=== PATIENT | female | born 1990 | race Caucasian/White ===

== ENCOUNTER 2020-08-17 17:22 | Emergency (ER) | payer OTHER, BC ==
--- OUTSIDE RECORDS SUMMARY | 2020-08-17 17:24 | XMS REPORT | Clinical Summary ---
:1990 Author Organization [facility] Address [address] [place] [address] Care Team Providers Name Role Phone Unavailable Primary Care Provider Unavailable Allergies Active Allergy Reactions Severity Noted Date Comments Sulfa (Sulfonamide Antibiotics) 9 Medications Medication Sig Dispensed Refills Start Date End Date Status amLODIPine (NORVASC) Take 2.5 mg by 0 Active 2.5 MG tablet mouth daily. losartan (COZAAR) 25 Take 25 mg by 0 Active MG tablet mouth daily. metoprolol (LOPRESSOR) Take 25 mg by 0 Active 25 MG tablet mouth 2 (two) times daily. clonazePAM (KLONOPIN) Take 0.5 mg by 0 Active 0.5 MG tablet mouth 2 (two) times daily as needed for Anxiety. Active Problems Not on file Social History Tobacco Use Types Packs/Day Years Used Date Current Some Day Smoker Alcohol Use Drinks/Week oz/Week Comments Yes Sex Assigned at Date Recorded Not on file Last Filed Vital Signs Not on file Plan of Treatment Not on file Results Not on fileafter 08/17/2019
--- OUTSIDE RECORDS SUMMARY | 2020-08-17 17:25 | XMS REPORT | Continuity of Care Document ---
:1990 Author Organization [facility] Care Team Providers Name Role Phone [facility] Unavailable Un available Problems Problem Status Onset Classification Date Comments Sourc e Date Reported OBESITY Active 01/03/20 Condition 01/02/2015 Medica l 15 Group HYPERTENSION, Active 11/28/19 Condition 01/02/2015 Me dical UNCONTROLLED 15 Group BACK PAIN, Active 11/22/19 Condition 01/02/2015 Medic al THORACIC REGION 15 Grou p NEED PROPHYLACTIC Active 08/22/20 Condition 01/02/2015 [facility] VACCINATION&INOCU 14 Gr oup LATION FLU DEPRESSION/ANXIET Active 08/22/20 Condition 01/02/2015 [facility] Y 14 Group BACK PAIN, LOWER Active 08/22/20 Condition 01/02/2015 Medical 14 Group MIGRAINE HEADACHE Active 08/22/20 Condition 01/02/2015 [facility] 14 Group ELEVATED BLOOD Inactive 08/22/20 Condition 01/02/2015 [facility] edical PRESSURE WITHOUT 14 Richie up DIAGNOSIS OF HYPERTENSION HTN Active Problem 08/16/2020 2.16.840. 1 (hypertension) .1138 83.4. 391.11.178 02 GERD Active Problem 01/09/2018 2.16.840. 1 (gastroesophageal .1 57338.4. reflux disease) 391. 11.178 02 ADD (attention Active Problem 08/16/2020 2.16 .840.1 deficit disorder) .1 70558.4. 391.11.178 02 Unspecified Active Problem 08/16/2020 2.16.84 0.1 essential .183173.4. hypertension 391.11. 178 02 Attention and Active Problem 08/16/2020 2.16. 840.1 concentration .42240 3.4. deficit 391.11.178 02 GERD Active Problem 08/16/2020 2.16.840. 1 (gastroesophageal .1 42925.4. reflux disease) 391. 11.178 02 Essential Active Problem 05/21/2018 2.16.840. 1 (primary) .640217.4. hypertension 391.11. 178 02 Gastro-esophageal Active Problem 08/16/2020 2 .16.840.1 reflux disease .1138 83.4. without 391.11.178 esophagitis 02 Attention or Active Problem 08/16/2020 2.16.8 40.1 concentration .42484 3.4. deficit 391.11.178 02 JB (generalized Active Problem 08/16/2020 2. 16.840.1 anxiety disorder) .1 82533.4. 391.11.178 02 Bipolar 2 Active Problem 08/16/2020 2.16.840. 1 disorder .089976.4. 391.11.178 02 Adult general Active Diagnosis 05/13/2020 2.16. 840.1 medical .570582.4. examination 391.11.1 78 02 Fatigue Active Diagnosis 08/16/2020 2.16.840. 1 .169138.4. 391.11.178 02 Medications Medication Details Route Status Patient Ordering Order Source Instructions Provider Date Adderall 1 tablet Orally Active 20 MG Orally Sánchez 2.16.840. daily 020 1.797454. 4.391.11. 07019 Vyvanse 1 capsule in Orally Active 70 MG Orally Sánchez 2.16.8 40. the morning Once a day 020 1.581570. 4.391.11. 59173 Vraylar 1 capsule Orally Active 1.5 MG Orally Sánchez 2.16.840 . 020 1.322308. 4.391.11. 56604 Mydayis 1 capsule in Orally Active 50 MG Orally Sánchez 2.16.8 40. the morning Once a day 020 1.168644. 4.391.11. 20042 Vyvanse 1 capsule in Orally Active 70 MG Orally Sánchez 2.16.8 40. the morning Once a day 020 1.181768. 4.391.11. 51926 BuSpar 1 tablet Orally Active 10 MG Orally Sánchez 2.16.840. Twice a day 020 1.629653. 4.391.11. 42180 Vyvanse 1 capsule in Orally Active 70 MG Orally [facility] 2.16.8 40. the morning Once a day 020 1.188018. 4.391.11. 59541 Aripiprazole 1 tablet Orally Active 10 MG Orally Sánchez 2.16. 840. Once a day 020 1.842388. 4.391.11. 68038 Adderall 1 tablet Orally Active 20 MG Orally Sánchez 2.16.840. Twice a day 020 1.071590. 4.391.11. 16986 Adderall 1 tablet Orally Active 20 MG Orally Sánchez 2.16.840. Twice a day 020 1.263606. 4.391.11. 60360 BuSpar 1 tablet Orally Active 10 MG Orally Sánchez 2.16.840. Twice a day 020 1.286176. 4.391.11. 89314 Adderall 1 tablet Orally Active 20 MG Orally [facility] 2.16.840. Twice a day 020 1.849179. 4.391.11. 18198 Lexapro 1 tablet Orally Active 20 MG Orally [facility] 2.16.840. Once a day 020 1.087617. 4.391.11. 13403 HydrOXYzine HCl 1 tablet as Orally Active 25 MG Orally [facility] 2.16.840. needed once every 020 1.642041. night 4.391.11. 30633 Klonopin 1/2 tab Orally Active 2 MG Orally [facility] 2.16.840. twice a day 020 1.213348. (bid) 4.391.11. 20897 Adderall 1 tablet Orally Active 10 MG Orally [facility] 2.16.840. Twice a day 020 1.792639. 4.391.11. 74234 Klonopin 1 tablet Orally Active 1 MG Orally [facility] 2.16.840. Once a day 020 1.132251. 4.391.11. 25186 Lexapro 1 tablet Orally Active 10 MG Orally [facility] 2.16.840. Once a day 020 1.746669. 4.391.11. 63580 IMITREX 50 MG 1 tablet onset Active MH TABS of SANTANA, repeat 015 Medical in 2 hours if Group SANTANA persists; max 200mg in 24 hours LEXAPRO 20 MG 1 tablet daily Active MH TABS 015 Medical Group METOPROLOL one tab po Active MH SUCCINATE ER 25 daily 015 Medical MG [id number] Group METOPROLOL one tab po Active MH SUCCINATE ER 50 daily 015 Medical MG [id number] Group LEXAPRO 10 MG 1 tablet No MH TABS daily; after 2 Longer 015 Medical weeks increase Active Group to 2 tablet po daily; pharmacist-dis regard last prescription for lexapro, this is correct TRAMADOL HCL 50 1 tablet daily Active M H MG TABS as needed for 015 Medical severe back Group pain TRAMADOL HCL 50 1 tablet daily Active M H MG TABS as needed for 015 Medical severe back Group pain EFFEXOR XR 75 one tab po Active MH MG [id number] daily 014 Medical Group TRAMADOL-ACETAM one tab po Active MH INOPHEN every 8-12 014 Medical 37.5-325 MG hours as Group TABS needed for back pain TRAMADOL-ACETAM one tab po No MH INOPHEN every 8-12 Longer 014 Medical 37.5-325 MG hours as Active Group TABS needed for back pain EFFEXOR XR 37.5 Take one No MH MG [id number] capsule by Longer 014 Medical mouth daily Active Group ACTICLATE 150 daily No MH MG TABS Longer 014 Medical Active Group EFFEXOR XR 37.5 Take one No MH MG [id number] capsule by Longer 014 Medical mouth daily Active Group MELOXICAM 7.5 one tab po No MH MG TABS twice daily as Longer 014 Medical needed for Active Group pain IMITREX 50 MG 1 tablet onset No MH TABS of SANTANA, repeat Longer 014 Medical in 2 hours if Active Group SANTANA persists; max 200mg in 24 hours MELOXICAM 7.5 one tab po No MH MG TABS twice daily as Longer 014 Medical needed for Active Group pain Metoprolol TAKE 1 TABLET NA Active 50 MG Sánchez 2.16.84 0. Succinate ER BY MOUTH EVERY 1.11 3883. DAY Omeprazole TAKE ONE NA Active 40 MG Sánchez 2.16.840. CAPSULE EVERY 1.020642. DAY Toprol XL take 1 tablet Orally Active 100 MG Orally Sánchez 2. 16.840. by mouth every 1.713990. day Toprol XL TAKE 1 TABLET NA Active 50 MG Sánchez 2.16.840 . BY MOUTH EVERY 1.340758. DAY Mydayis 1 capsule in Orally Active 37.5 MG Orally Sánchez 2.16 .840. the morning Once a day .933099. Norvasc TAKE 1 TABLET NA Active 5 MG Sánchez 2.16.840. BY MOUTH EVERY 1.793150. DAY Meloxicam TAKE 1 TABLET NA Active 15 MG Sánchez 2.16.840 . BY MOUTH EVERY 1.404110. DAY Losartan TAKE 1 TABLET NA Active 100 MG Sánchez 2.16.840. Potassium BY MOUTH EVERY 1.30327 3. DAY Lexapro 1 tablet Orally Active 20 MG Orally Sánchez 2.16.840. Once a day . Metoprolol TAKE 1 TABLET NA Active 100 MG Sánchez 2.16.84 0. Succinate ER BY MOUTH EVERY 1.11 3883. DAY Toprol XL take 1 tablet Orally Active 100 MG Orally Sánchez 2. 16.840. by mouth every 1.580881. day Allergies, Adverse Reactions, Alerts Substance Category Reaction Severity Reaction Status Date Comments S ource type Reported SULFA Drug SULFA MH allergy 4 Medical Group sulfa Adverse Info Not Adverse Active 2.16. 840 Reaction Available Reaction 0 .1.1 1388 3.4.391. 11.86493 Immunizations No Data Provided for This Section Results Order Name Results Value Reference Date Interpretation Comments Carleen rce Range Chemistry TSH 1.270 0.360 - 3.740 014 Medical Group Pathology Reports No Data Provided for This Section Diagnostic Reports No Data Provided for This Section Consultation Notes No Data Provided for This Section Discharge Summaries No Data Provided for This Section History and Physicals No Data Provided for This Section Vital Signs Vital Sign Value Date Comments Source Weight 201 05/12/2020 2.16.840.1.1138 83 .4.391.11.49351 Height 64 05/12/2020 2.16.840.1.1138 83 .4.391.11.24285 Diastolic (mm Hg) 92 05/12/2020 2.16.840.1 .132748 .4.391.11.09809 Systolic (mm Hg) 140 05/12/2020 2.16.840.1. 515462 .4.391.11.85230 Weight 204 02/01/2020 2.16.840.1.1138 83 .4.391.11.95021 Height 64 02/01/2020 2.16.840.1.1138 83 .4.391.11.36721 Diastolic (mm Hg) 90 02/01/2020 2.16.840.1 .338893 .4.391.11.24440 Systolic (mm Hg) 140 02/01/2020 2.16.840.1. 425347 .4.391.11.93409 Weight 214 01/11/2020 2.16.840.1.1138 83 .4.391.11.96006 Height 64 01/11/2020 2.16.840.1.1138 83 .4.391.11.65214 Diastolic (mm Hg) 110 01/11/2020 2.16.840.1 .125879 .4.391.11.39706 Systolic (mm Hg) 160 01/11/2020 2.16.840.1. 593381 .4.391.11.80969 Weight 208 01/02/2015 Medical Grou p Systolic (mm Hg) 139 01/02/2015 Medical Group Diastolic (mm Hg) 94 01/02/2015 Medical Group Temperature Oral (F) 98.5 F 01/02/2015 Medi beto Group Respitory Rate 20 01/02/2015 Medical Gr oup Heart Rate 80 01/02/2015 Medical Grou p Height 65 11/28/2014 Medical Grou p Weight 202 11/28/2014 Medical Grou p Respitory Rate 17 11/28/2014 Medical Gr oup Systolic (mm Hg) 148 11/28/2014 Medical Group Diastolic (mm Hg) 102 11/28/2014 Medical Group Heart Rate 97 11/28/2014 Medical Grou p Temperature Oral (F) 98.3 F 11/28/2014 Medi beto Group Height 65 11/22/2014 Medical Grou p Weight 204 11/22/2014 Medical Grou p Respitory Rate 17 11/22/2014 Medical Gr oup Temperature Oral (F) 98.1 F 11/22/2014 Medi beto Group Heart Rate 88 11/22/2014 Medical Grou p Systolic (mm Hg) 142 11/22/2014 Medical Group Diastolic (mm Hg) 102 11/22/2014 Medical Group Height 65 09/26/2014 Medical Grou p Weight 199 09/26/2014 Medical Grou p Respitory Rate 17 09/26/2014 Medical Gr oup Temperature Oral (F) 98.7 F 09/26/2014 Medi beto Group Heart Rate 92 09/26/2014 Medical Grou p Systolic (mm Hg) 114 09/26/2014 Medical Group Diastolic (mm Hg) 80 09/26/2014 Medical Group Respitory Rate 17 08/22/2014 Medical Gr oup Weight 199 08/22/2014 Medical Grou p Height 65 08/22/2014 Medical Grou p Systolic (mm Hg) 140 08/22/2014 Medical Group Diastolic (mm Hg) 80 08/22/2014 Medical Group Temperature Oral (F) 98.0 F 08/22/2014 Medi beto Group Encounters Location Location Encounter Encounter Reason Attending ADM DC Stat us Source Details Type Number For Provider Date Date Visit [facility] Report [id number] Twyla 08/22 08/22 BOB Corral 0 MD Marc /2013 [facility] Office [id number] Twyla 08/22 08/22 Gilbert Visit 0 MD [facility] [id number] Twyla 09/26 09/26 MH Ellis Visit 0 MD [facility] Office [id number] Twyla 11/22 11/22 Gilbert Visit 0 MD [facility] [id number] Twyla 11/28 11/28 Ellis Visit 0 MD [facility] [id number] Twyla 01/02 01/02 Gilbert Visit 0 MD [facility] [place] Procedures No Data Provided for This Section Assessment and Plan No Data Provided for This Section Plan of Care No Data Provided for This Section Social History No Data Provided for This Section Family History No Data Provided for This Section Advance Directives No Data Provided for This Section Functional Status No Data Provided for This Section
--- OUTSIDE RECORDS SUMMARY | 2020-08-17 17:25 | XMS REPORT ---
:1990 Author Organization [employer] Care Team Providers Name Role Phone Garth Sánchez Provider Role Unavailable Allergies No Known Allergies Problems Problem Type Condition Code Onset Dates Condition Statu s Problem GERD (gastroesophageal reflux 530.81 Active disease) Problem Attention and concentration deficit 799.51 Active Problem HTN (hypertension) I10 Active Problem JB (generalized anxiety disorder) F41.1 Active Problem Bipolar 2 disorder F31.81 Active Problem ADD (attention deficit disorder) F90.0 Active Problem Unspecified essential hypertension 401.9 Active Problem Attention or concentration deficit R41.840 Active Problem Gastro-esophageal reflux disease K21.9 Active without esophagitis Medications Medication Code System Code Instructions Start End Date Status Dos age Date Adderall [facility] 15430697065 20 MG Orally Oct 20, Active 1 tabl et daily 2019 Vyvanse [facility] 16226784335 70 MG Orally Oct 20, Active 1 capsu le Once a day 2019 in the morning Results No Known Results Summary Purpose [employer] Submission
--- OUTSIDE RECORDS SUMMARY | 2020-08-17 17:25 | XMS REPORT ---
[...] Start End Date Status Dos age Date Klonopin [facility] 53279479032 2 MG Orally January 10, Active 1/2 t ab twice a day 2019 (bid) Vyvanse [facility] 23606701801 70 MG Orally Jul 11, Active 1 caps ule Once a day 2019 in the morning BuSpar NDC 0 10 MG Orally Jul 11, Active 1 tablet Twice a day 2019 Results No Known Results Summary Purpose [employer] Submission
--- OUTSIDE RECORDS SUMMARY | 2020-08-17 17:25 | XMS REPORT ---
:1990 Author Organization [employer] Care Team Providers Name Role Phone Garth Sánchez Provider Role Unavailable Allergies, Adverse Reactions, Alerts Substance Reaction Event Type sulfa Info Not Available Drug Allergy Problems Problem Type Condition Code Onset Dates Condition Statu s Problem GERD (gastroesophageal reflux 530.81 Active disease) Problem Attention and concentration deficit 799.51 Active Assessment Bipolar 2 disorder F31.81 Active Assessment ADD (attention deficit disorder) F90.0 Active Assessment Fatigue R53.83 Active Problem HTN (hypertension) I10 Active Problem JB (generalized anxiety disorder) F41.1 Active Problem Bipolar 2 disorder F31.81 Active Problem ADD (attention deficit disorder) F90.0 Active Problem Unspecified essential hypertension 401.9 Active Problem Attention or concentration deficit R41.840 Active Problem Gastro-esophageal reflux disease K21.9 Active without esophagitis Medications Medication Code Code Instructions Start End Status Dosage System Date Date Adderall [facility] 17637915897 20 MG Orally April 25, Active 1 tab let Twice a day 2019 Toprol XL [facility] [address]-53 100 MG Orally Active ta ke 1 tablet by mouth every day Vyvanse [facility] 15498323796 70 MG Orally Jul 11, Active 1 caps ule Once a day 2019 in the morning Klonopin ND 45682794920 2 MG Orally December Active 1/2 tab twice a day 2019 (bid) HydrOXYzine HCl [facility] 20277871597 25 MG Orally December Active 1 tablet once every 2019 as needed night Omeprazole [facility] 86338286374 40 MG Active TAKE ONE CAPSULE EVERY DAY BuSpar NDC 0 10 MG Orally Jul 11, Active 1 tablet Twice a day 2019 Lexapro [facility] 25542275585 20 MG Orally Active 1 table t Once a day Aripiprazole ND 63121968298 10 MG Orally May 12, Inactive 1 tablet Once a day 2019 Vraylar [facility] 52443491186 1.5 MG Orally Oct , Active 1 caps ule 2019 Mydayis [facility] 68522821878 50 MG Orally Oct 20, Active 1 capsu le Once a day 2019 in the morning Results No Known Results Summary Purpose [employer] Submission
--- OUTSIDE RECORDS SUMMARY | 2020-08-17 17:25 | XMS REPORT ---
[...] reflux disease K21.9 Active without esophagitis Medications No Known Medications Results No Known Results Summary Purpose [employer] Submission
--- OUTSIDE RECORDS SUMMARY | 2020-08-17 17:25 | XMS REPORT ---
:1990 Author Organization [employer] Care Team Providers Name Role Phone Garth Sánchez Provider Role Unavailable Allergies No Known Allergies Problems Problem Type Condition Code Onset Dates Condition Statu s Problem GERD (gastroesophageal reflux 530.81 Active disease) Problem Attention and concentration deficit 799.51 Active Assessment JB (generalized anxiety disorder) F41.1 Active Problem HTN (hypertension) I10 Active Problem JB (generalized anxiety disorder) F41.1 Active Problem Bipolar 2 disorder F31.81 Active Problem ADD (attention deficit disorder) F90.0 Active Problem Unspecified essential hypertension 401.9 Active Problem Attention or concentration deficit R41.840 Active Problem Gastro-esophageal reflux disease K21.9 Active without esophagitis Medications Medication Code System Code Instructions Start End Date Status Dos age Date Klonopin [facility] 37124926757 2 MG Orally January 10, Active 1/2 t ab twice a day 2019 (bid) Vyvanse [facility] 56307373180 70 MG Orally Jun 08, Active 1 capsu le Once a day 2019 in the morning Results No Known Results Summary Purpose [employer] Submission
--- OUTSIDE RECORDS SUMMARY | 2020-08-17 17:26 | XMS REPORT | Continuity of Care Document ---
:1990 Author Organization [facility] t Address [address] [place] [address] Care Team Providers Name Role Phone Viktoria JOEL Attending Clinician Unavailable MAAME ENGLISH Attending Clinician Unavailable Problems Condition Condition Condition Status Onset Resolution Last Treating Co mments Source Name Details Category Date Date Treatment Clinician Date OBESITY Condition Active 2015-01-02 Me moria 01-02 11:34:04 l OBESITY 00:00: [place] 00 Active 01/02/2015 Condition [facility] HYPERTENSI Condition Active 2015-01-02 Memoria ON, 11-28 11:34:04 l UNCONTROLL 00:00: Shawn n ED HYPERTENSI 00 ON, UNCONTROLL ED Active 5 Condition 01/02/2015 [facility] Group BACK PAIN, Condition Active 2015-01-02 Memoria THORACIC 1 11:34:04 l REGION BACK 00:00: [place] PAIN, 00 THORACIC REGION Active 11/22/2014 Condition [facility] NEED Condition Active 2013-102015-01-02 Mem oria PROPHYLACT 0- 11:34:04 l IC NEED 00:00: [place] VACCINATIO PROPHYLACT 00 N&INOCULAT IC ION FLU VACCINATIO N&INOCULAT ION FLU Active 08/22/2014 Condition [facility] DEPRESSION Condition Active 2013-102015-01-02 Memoria /ANXIETY 0- 11:34:04 l 00:00: [place] DEPRESSION 00 /ANXIETY Active 08/22/2014 Condition [facility] BACK PAIN, Condition Active 2013-102015-01-02 Memoria LOWER 0-27 11:34:04 l BACK 00:00: [place] PAIN, 00 LOWER Active 08/22/2014 Condition [facility] MIGRAINE Condition Active 2013-102015-01-02 M bisirijustin HEADACHE 0-27 11:34:04 l MIGRAINE 00:00: Shawn n HEADACHE 00 Active 08/22/2014 Condition [facility] HTN Problem Active 2020-08-16 Memor ia (hypertens 02:45:57 l ion) HTN [place] (hypertens ion) Active Problem 08/16/2020 2.16.840.1 .413017.4. [id number] 02 ADD Problem Active 2020-08-16 Memor ia (attention 02:45:57 l deficit ADD [place] disorder) (attention deficit disorder) Active Problem 08/16/2020 2.16.840.1 .428322.4. [id number] 02 Unspecifie Problem Active 2020-08-16 M emoria d 02:45:57 l essential [place] hypertensi Unspecifie on d essential hypertensi on Active Problem 0 2.16.840.1 .169019.4. [id number] 02 Attention Problem Active 2020-08-16 Me moria and 02:45:57 l concentrat Shawn n ion Attention deficit and concentrat ion deficit Active Problem 08/16/2020 2.16.840.1 .691821.4. [id number] 02 GERD Problem Active 2020-08-16 Memor ia (gastroeso 02:45:57 l phageal GERD [place] reflux (gastroeso disease) phageal reflux disease) Active Problem 08/16/2020 2.16.840.1 .930266.4. [id number] 02 Gastro-eso Problem Active 2020-08-16 M emoria phageal 02:45:57 l reflux [place] disease Gastro-eso without phageal esophagiti reflux s disease without esophagiti s Active Problem 08/16/2020 2.16.840.1 .213539.4. [id number] 02 Attention Problem Active 2020-08-16 Me moria or 02:45:57 l concentrat Shawn n ion Attention deficit or concentrat ion deficit Active Problem 08/16/2020 2.16.840.1 .907794.4. [id number] 02 JB Problem Active 2020-08-16 Memor ia (generaliz 02:45:57 l ed anxiety JB Shawn n disorder) (generaliz ed anxiety disorder) Active Problem 08/16/2020 2.16.840.1 .054104.4. [id number] 02 Bipolar 2 Problem Active 2020-08-16 Me moria disorder 02:45:57 l Bipolar [place] 2 disorder Active Problem 08/16/2020 2.16.840.1 .181335.4. 391.11.178 02 Adult Diagnosis Active 2020-05-13 Mem oria general 02:46:13 l medical Adult [place] examinatio general n medical examinatio n Active Diagnosis 05/13/2020 2.16.840.1 .652294.4. [id number] 02 Fatigue Diagnosis Active 2020-08-16 Me moria 02:45:06 l Fatigue [place] Active Diagnosis 08/16/2020 2.16.840.1 .054854.4. [id number] 02 History of Past Illness Condition Condition Condition Status Onset Resolution Last Treating Co mments Source Name Details Category Date Date Treatment Clinician Date ELEVATED Condition Inactiv 2013-102015-01-02 2015-01-02 Memoria BLOOD e 0-27 11:34:04 11:34:04 l PRESSURE ELEVATED 00:00: Herm kathy WITHOUT BLOOD 00 DIAGNOSIS PRESSURE OF WITHOUT HYPERTENSI DIAGNOSIS ON OF HYPERTENSI ON Inactive 08/22/2014 Condition [facility] Allergies, Adverse Reactions, Alerts Allergy Allergy Status Severity Reaction(s) Onset Inactive Treating Comm ents Source Name Type Date Date Clinician sulfa sulfa Active Info Not 2019-10 Memoria Available 0-19 l 00:00: [place] 00 Sulfa Propensi Active [facility] ([facility] m[facility] adverse 00:00: Medical Antibiot reaction 00 Center ics) s SULFA SULFA Active 2013-10 Memoria 0-27 l 00:00: [place] 00 Social History Social Habit Start Date Stop Date Quantity Comments Source Sex Assigned At [facility] Alcohol intake 2019-03-04 2019-03-04 Current drinker LAYLA Poon - 00:00:00 00:00:00 of [facility] (finding) Smoking Status Start Date Stop Date Source Current some day smoker 2019-03-04 00:00:00 [facility] Medications Ordered Filled Start Stop Current Ordering Indication Dosage Frequency Signature Comments Components Source Medication Medication Date Date Medication? Clinician (SIG) Name Name Omeprazole 2020- Yes Garth TAKE ONE Me moria 0-21 Sánchez CAPSULE l 02:45: EVERY DAY [place] Lexapro 2020- Yes Gatrh 1 tablet Memor ia 0-21 Sánchez l 02:45: [place] 06 Toprol XL 2019- Yes Garth take 1 Memor ia 0-21 Sánchez tablet by l 02:45: mouth [place] 06 every day Adderall 2019- Yes Garth 1 tablet Andres melania 0-20 Sánchez l 00:00: [place] 00 Vyvanse 2020-1 Yes Garth 1 capsule Andres melania 0-20 Sánchez in the l 00:00: morning [place] 00 Vraylar 2020-1 Yes Garth 1 capsule Andres melania 0-20 Sánchez l 00:00: [place] 00 Mydayis 2020-1 Yes Garth 1 capsule Andres melania 0-20 Sánchez in the l 00:00: morning [place] 00 Vyvanse 2020-0 Yes Garth 1 capsule Andres melania 9-15 Sánchez in the l 00:00: morning [place] 00 BuSpar 2020-0 Yes Garth 1 tablet Memori a 9-15 Sánchez l 00:00: [place] 00 Vyvanse 2020-0 Yes Garth 1 capsule Andres melania 8-13 Sánchez in the l 00:00: morning [place] 00 Metoprolol 2020-0 Yes Garth TAKE 1 Andres melania Succinate 7-18 Sánchez TABLET BY l ER 02:46: MOUTH [place] 13 EVERY DAY Toprol XL 2020-0 Yes Garth take 1 Memor ia 7-18 Sánchez tablet by l 02:46: mouth [place] 13 every day Metoprolol 2020-0 Yes Garth TAKE 1 Andres melania Succinate 7-18 Sánchez TABLET BY l ER 02:46: MOUTH [place] 13 EVERY DAY Aripiprazol 2020-0 Yes Garth 1 tablet M emoria e 7-17 Sánchez l 00:00: Adderall 2020-0 Yes Garth 1 tablet Andres melania 6-30 Sánchez l 00:00: Adderall 2020-0 Yes Garth 1 tablet Andres melania 5-19 Sánchez l 00:00: BuSpar 2020-0 Yes Garth 1 tablet Memori a 4-08 Sánchez l 00:00: Adderall 2020-0 Yes Garth 1 tablet Andres melania 4-08 Sánchez l 00:00: Toprol XL 2020-0 Yes Garth TAKE 1 Memor ia 3-18 Sánchez TABLET BY l 02:46: MOUTH [place] 15 EVERY DAY Mydayis 2020-0 Yes Garth 1 capsule Andres melania 3-18 Sánchez in the l 02:46: morning [place] 15 Norvasc 2020-0 Yes Garth TAKE 1 Memoria 3-18 Sánchez TABLET BY l 02:46: MOUTH [place] 15 EVERY DAY Meloxicam 2020-0 Yes Garth TAKE 1 Memor ia 3-18 Sánchez TABLET BY l 02:46: MOUTH [place] 15 EVERY DAY Losartan 2020-0 Yes Garth TAKE 1 Memori a Potassium 3-18 Sánchez TABLET BY l 02:46: MOUTH [place] 15 EVERY DAY Lexapro 2020-0 Yes Garth 1 tablet Memor ia 3-17 Sánchez l 00:00: HydrOXYzine 2020-0 Yes Garth 1 tablet M emoria HCl 3-17 Sánchez as needed l 00:00: Klonopin 2020-0 Yes Garth 1/2 tab Memor ia 3-17 Sánchez l 00:00: Adderall 2020-0 Yes Garth 1 tablet Andres melania 3-17 Sánchez l 00:00: Klonopin 2020-0 Yes Garth 1 tablet Andres melania 3-17 Sánchez l 00:00: Lexapro 2020-0 Yes Garth 1 tablet Memor ia 3-17 Sánchez l 00:00: amLODIPine 2019-0 Yes 2.5mg QD Take 2.[address] [facility] [address] [facility] (NORVASC) 5-08 mg by [facility] - 2.5 MG 21:48: mouth Medical tablet 18 daily. Center losartan Yes 25mg QD Take [address] [facility] (COZAAR) 25 5-08 by mouth Luke s - MG tablet 21:48: daily. Medica l 18 Center metoprolol Yes 25mg Q.5D Take [address] [facility] [address] [facility] (LOPRESSOR) 5-08 by mouth 2 Julia kes - 25 MG 21:48: (two) Medical tablet 18 times Center daily. clonazePAM Yes .5mg Take 0.[address] [facility] (KLONOPIN) 5-08 mg by [facility] - 0.5 MG 21:48: mouth 2 Medical tablet 18 (two) Center times daily as needed for Anxiety. IMITREX 50 Yes 1 tablet Mem oria MG TABS 3-09 onset of l 00:00: SANTANA, repeat in 2 hours if SANTANA persists; max 200mg in 24 hours LEXAPRO 20 Yes 1 tablet Mem oria MG TABS 3-09 daily l 00:00: [place] METOPROLOL Yes one tab po M emoria SUCCINATE 2-02 daily l ER 25 MG 00:00: [place] [id number] METOPROLOL Yes one tab po M emoria SUCCINATE 2-02 daily l ER 50 MG 00:00: [place] [id number] LEXAPRO 10 No 1 tablet Mem oria MG TABS 1-27 daily; l 00:00: after 2 [place] 00 weeks increase to 2 tablet po daily; pharmacist -disregard last prescripti on for lexapro, this is correct TRAMADOL Yes 1 tablet Memor ia HCL 50 MG 1-27 daily as l TABS 00:00: needed for severe back pain TRAMADOL Yes 1 tablet Memor ia HCL 50 MG 1-27 daily as l TABS 00:00: needed for severe back pain EFFEXOR XR 2013-10 Yes one tab po M emoria 75 MG 2-01 daily l [id number] 00:00: [place] 00 TRAMADOL-AC 2013-10 Yes one tab po Memoria ETAMINOPHEN 2-01 every 8-12 l 37.5-325 MG 00:00: hours as He rmann TABS 00 needed for back pain TRAMADOL-AC 2013-10 No one tab po Memoria ETAMINOPHEN 2-01 every 8-12 l 37.5-325 MG 00:00: hours as He rmann TABS 00 needed for back pain EFFEXOR XR 2013-10 No Take one Mem oria 37.5 MG 2-01 capsule by l [id number] 00:00: mouth [place] 00 daily ACTICLATE 2013-10 No daily Memoria 150 MG TABS 0-27 l 00:00: [place] 00 EFFEXOR XR 2013-10 No Take one Mem oria 37.5 MG 0-27 capsule by l [id number] 00:00: mouth [place] 00 daily MELOXICAM 2013-10 No one tab po Me moria 7.5 MG TABS 0-27 twice l 00:00: daily as [place] 00 needed for pain IMITREX 50 2013-10 No 1 tablet Mem oria MG TABS 0-27 onset of l 00:00: SANTANA, repeat [place] 00 in 2 hours if SANTANA persists; max 200mg in 24 hours MELOXICAM 2013-10 No one tab po Me moria 7.5 MG TABS 0-27 twice l 00:00: daily as [place] 00 needed for pain Vital Signs Vital Name Observation Time Observation Value Comments Source Weight 2020-05-12 16:00:00 [facility] [place] Height 2020-05-12 16:00:00 [facility] [place] Diastolic (mm Hg) 2020-05-12 16:00:00 Mem orial [place] Systolic (mm Hg) 2020-05-12 16:00:00 Andres Corral Weight 2020-02-01 19:00:00 [facility] [place] Height 2020-02-01 19:00:00 [facility] [place] Diastolic (mm Hg) 2020-02-01 19:00:00 Mem orial [place] Systolic (mm Hg) 2020-02-01 19:00:00 Andres Ricardoann Weight 2020-01-11 19:00:00 [facility] [place] Height 2020-01-11 19:00:00 [facility] [place] Diastolic (mm Hg) 2020-01-11 19:00:00 Mem orial [place] Systolic (mm Hg) 2020-01-11 19:00:00 Andres Corral Weight 2015-01-02 16:34:04 [facility] [place] Systolic (mm Hg) 2015-01-02 16:34:04 Andres rial [place] Diastolic (mm Hg) 2015-01-02 16:34:04 Mem orial [place] Temperature Oral (F) 2015-01-02 16:34:04 98.5 F [facility] [place] Respitory Rate 2015-01-02 16:34:04 Memori al [place] Heart Rate 2015-01-02 16:34:04 [facility] [place] Height 2014-11-28 17:16:13 [facility] [place] Weight 2014-11-28 17:16:13 [facility] [place] Respitory Rate 2014-11-28 17:16:13 Memori al [place] Systolic (mm Hg) 2014-11-28 17:16:13 Andres rial [place] Diastolic (mm Hg) 2014-11-28 17:16:13 Mem orial [place] Heart Rate 2014-11-28 17:16:13 [facility] [place] Temperature Oral (F) 2014-11-28 17:16:13 98.3 F [facility] [place] Height 2014-11-22 14:28:22 [facility] [place] Weight 2014-11-22 14:28:22 [facility] [place] Respitory Rate 2014-11-22 14:28:22 Memori al [place] Temperature Oral (F) 2014-11-22 14:28:22 98.1 F [facility] [place] Heart Rate 2014-11-22 14:28:22 [facility] [place] Systolic (mm Hg) 2014-11-22 14:28:22 Andres rial [place] Diastolic (mm Hg) 2014-11-22 14:28:22 Mem orial [place] Height 2014-09-26 14:19:23 [facility] [place] Weight 2014-09-26 14:19:23 [facility] [place] Respitory Rate 2014-09-26 14:19:23 Memori al [place] Temperature Oral (F) 2014-09-26 14:19:23 98.7 F [facility] [place] Heart Rate 2014-09-26 14:19:23 [facility] [place] Systolic (mm Hg) 2014-09-26 14:19:23 Andres rial [place] Diastolic (mm Hg) 2014-09-26 14:19:23 Mem orial [place] Respitory Rate 2014-08-22 19:41:31 Memori al [place] Weight 2014-08-22 19:41:31 [facility] [place] Height 2014-08-22 19:41:31 [facility] [place] Systolic (mm Hg) 2014-08-22 19:41:31 Andres perry Ricardoann Diastolic (mm Hg) 2014-08-22 19:41:31 Mem orial [place] Temperature Oral (F) 2014-08-22 19:41:31 98.0 F [facility] [place] Procedures This patient has no known procedures. Encounters Start End Encounter Admission Attending Care Care Encounter Source Date/Time Date/Time Type Type Clinicians Facility Department ID 2020-08-15 2020-08-15 [place] [id number] [facility] 08:39:00 08:39:00 [facility] 2020-08-14 2020-08-14 [place] [place] [id number] [facility] 18:20:00 18:20:00 [facility] 2020-08-10 2020-08-10 [place] [place] [id number] [facility] 13:44:00 13:44:00 [facility] 2020-07-10 2020-07-10 [place] [place] [id number] [facility] 10:39:00 10:39:00 [facility] 2020-06-07 2020-06-07 [place] [place] [id number] [facility] 11:22:00 11:22:00 [facility] 2020-05-12 2020-05-12 [place] [place] [id number] [facility] 11:00:00 11:00:00 [facility] 2020-05-05 2020-05-05 [place] [id number] [facility]inic 10:19:00 10:19:00 [facility] 2020-04-24 2020-04-24 [place] [place] [id number] [facility]inic 14:06:00 14:06:00 [facility] 2020-03-28 2020-03-[address] [id number] Access 00:00:00 00:00:00 [facility] 2020-03-13 2020-03-13 [place] [id number] eClinic 13:43:00 13:43:00 [facility] 2020-02-02 2020-02-02 [place] [id number] [facility]inic 08:51:00 08:51:00 [facility] 2020-02-01 2020-02-01 [place] [id number] [facility]inic 14:00:00 14:00:00 [facility] 2020-01-11 2020-01-11 [place] [id number] [facility]inic 14:00:00 14:00:00 [facility] 2018-05-20 2018-05-20 [place] [id number] [facility]inic 11:29:00 11:29:00 [facility] 2018-01-08 2018-01-08 [place] [id number] [facility]inic 08:34:00 08:34:00 [facility] 2017-12-02 2017-12-02 [place] [id number] [facility]inic 14:35:00 14:35:00 [facility] 2017-11-07 2017-11-07 [place] [id number] [facility]inic 09:34:00 09:34:00 [facility] 2017-09-30 2017-09-30 [place] [id number] [facility]inic 09:00:00 09:00:00 [facility] Results Test Description Test Time Test Comments Results Result Comments Source ETHANOL 2019-03-04 02:59:00 Test Item Value Reference Range Interpretation Comme nts ETHANOL (EDNA) (test code = 400) 11 mg/dL <=10 H TROPONIN [id number] 22:49:00 Test Item Value Reference Range Interpretation Comments TROPONIN I (EDNA) (test code = 397) < ng/mL 0.00-0.15 Troponin I (TnI) levels must be interpreted in the context of the presenting symptoms and the clinical findings. Elevated TnI levels indicate myocardial damage, but are not specific for ischemic heart disease. Elevated TnI levels are seen in patients with other cardiac conditions (including myocarditis and congestive heart failure), and slight TnI elevations occur in patients with other conditions, including sepsis, renal failure, acidosis, acute neurological disease, and persistent tachyarrhythmia.HEPATIC FUNCTION [id number] 22:43:00 Test Item Value Reference Range Interpretation Comments TOTAL PROTEIN (BEAKER) (test code = 7.2 gm/dL 6.0-8.5 770) ALBUMIN (BEAKER) (test code = 1145) 4.3 g/dL 3.5-5.0 BILIRUBIN TOTAL (BEAKER) (test code 0.3 mg/dL 0.1-1.2 = 377) BILIRUBIN DIRECT (BEAKER) (test 0.1 mg/dL 0.0-0.4 code = 706) ALKALINE PHOSPHATASE (BEAKER) (test 89 U/L 30-115 code = 346) AST (SGOT) (BEAKER) (test code = 26 U/L 5-40 353) ALT (SGPT) (BEAKER) (test code = 40 U/L 5-50 347) BASIC METABOLIC [id number] 22:42:00 Test Item Value Reference Range Interpretation Comments SODIUM (BEAKER) 142 meq/L 135-148 (test code = 381) POTASSIUM (BEAKER) 4.1 meq/L 3.6-5.5 (test code = 379) CHLORIDE (BEAKER) 108 meq/L 98-106 H (test code = 382) CO2 (BEAKER) (test 21 meq/L 20-29 code = 355) BLOOD UREA NITROGEN 13 mg/dL 10-26 (BEAKER) (test code = 354) CREATININE (BEAKER) 0.68 mg/dL 0.50-1.20 (test code = 358) GLUCOSE RANDOM 81 mg/dL 70-110 (BEAKER) (test code = 652) CALCIUM (BEAKER) 9.0 mg/dL 8.5-10.5 (test code = 697) EGFR (BEAKER) (test mL/min/1.73 INSUFFIC IENT CLINICAL code = 1092) sq m DATA TO CALCULA TE ESTIMATED GFR. RAPID DRUG SCREEN, [id number] 22:41:00 Test Item Value Reference Range Interpretation Comments BARBITURATE URINE (BEAKER) (test Negative Negative code = 725) BENZODIAZEPINE SCREEN URINE (BEAKER) Positive Negative A (test code = 726) COCAINE (METAB.) SCREEN (BEAKER) Negative Negative (test code = 1164) METHADONE SCREEN (BEAKER) (test code Negative Negative = 1436) OPIATE SCREEN URINE (BEAKER) (test Negative Negative code = 734) CANNABINOID SCREEN URINE (BEAKER) Negative Negative (test code = 727) AMPH/METHAMPH SCREEN (BEAKER) (test Negative Negative code = 1438) PHENCYCLIDINE SCREEN URINE (BEAKER) Negative Negative (test code = 608) DRUG CUTOFF CONC.Cocaine 300 ng/mL Cannabinoid 50 ng/mLBenzodiazepine 200 ng/mLBarbiturate 200 ng/mLPhencyclidine 25 ng/mLOpiate 300 ng/mLMethadone 300 ng/mLAmphetamine/ 1000 ng/mL MethamphetamineThis assay provides an unconfirmed qualitative test result for the clinical management of patients in emergency situations. Chain of custody not maintained. Some daey-tsy-ssqsriy medications, as well as adulterants, may cause inaccurate results. Clinical correlation should be applied. A more comprehensivedrug screen or confirmation of a detected drug may be performed upon request.SALICYLATE [id number] 22:41:00 Test Item Value Reference Range Interpretation Comments SALICYLATE LEVEL (BEAKER) (test code < mg/dL 20.0-30.0 L = 764) [id number] 22:38:00 Test Item Value Reference Range Interpretation Comments ETHANOL (BEAKER) (test code = 400) 145 mg/dL <=10 H ACETAMINOPHEN [id number] 22:38:00 Test Item Value Reference Range Interpretation Comments ACETAMINOPHEN LEVEL (BEAKER) (test < ug/mL 10.0-30.0 L code = 344) URINALYSIS W/ [id number] 22:25:00 Test Item Value Reference Range Interpretation Comments COLOR (BEAKER) (test code = Yellow 470) CLARITY (BEAKER) (test code = Clear 469) SPECIFIC GRAVITY UA (BEAKER) 1.010 1.001-1.035 (test code = 468) PH UA (BEAKER) (test code = 6.0 5.0-8.0 467) PROTEIN UA (BEAKER) (test code Negative Negative = 464) GLUCOSE UA (BEAKER) (test code Negative Negative = 365) KETONES UA (BEAKER) (test code Negative Negative = 371) BILIRUBIN UA (BEAKER) (test Negative Negative code = 462) BLOOD UA (BEAKER) (test code = Negative Negative 461) NITRITE UA (BEAKER) (test code Negative Negative = 465) LEUKOCYTE ESTERASE UA (BEAKER) Trace Negative A (test code = 466) UROBILINOGEN UA (BEAKER) (test 0.2 mg/dL 0.2-1.0 code = 463) BACTERIA (BEAKER) (test code = Rare 517) RBC UA-MANUAL (BEAKER) (test None Seen /HPF code = 1659) WBC UA-MANUAL (BEAKER) (test 5-10 /HPF code = 1661) SQUAMOUS EPITHELIAL MANUAL 5-10 /HPF (BEAKER) (test code = 1663) SOURCE(BEAKER) (test code = 2795) SCREEN, [id number] 22:19:00 Test Item Value Reference Range Interpretation Comments TEST URINE (BEAKER) (test Negative code = 583) CBC W/PLT COUNT & AUTO [id number] 22:15:00 Test Item Value Reference Range Interpretation Comments WHITE BLOOD CELL COUNT (BEAKER) 11.2 K/ L 4.0-10.0 H (test code = 775) RED BLOOD CELL COUNT (BEAKER) 4.89 M/ L 4.00-5.00 (test code = 761) HEMOGLOBIN (BEAKER) (test code = 14.0 GM/DL 12.0-15.5 410) HEMATOCRIT (BEAKER) (test code = 43.0 % 36.0-46.0 411) MEAN CORPUSCULAR VOLUME (BEAKER) 87.9 fL 82.0-99.0 (test code = 753) MEAN CORPUSCULAR HEMOGLOBIN 28.6 pg 27.0-33.0 (BEAKER) (test code = 751) MEAN CORPUSCULAR HEMOGLOBIN CONC 32.6 GM/DL 32.0-36.0 (BEAKER) (test code = 752) RED CELL DISTRIBUTION WIDTH 13.1 % 12.0-15.0 (BEAKER) (test code = 412) PLATELET COUNT (BEAKER) (test 425 K/CU MM 150-430 code = 756) MEAN PLATELET VOLUME (BEAKER) 8.4 fL 6.0-11.5 (test code = 754) NUCLEATED RED BLOOD CELLS 0 /100 WBC 0-0 (BEAKER) (test code = 413) NEUTROPHILS RELATIVE PERCENT 60 % (BEAKER) (test code = 429) LYMPHOCYTES RELATIVE PERCENT 31 % (BEAKER) (test code = 430) MONOCYTES RELATIVE PERCENT 6 % (BEAKER) (test code = 431) EOSINOPHILS RELATIVE PERCENT 2 % (BEAKER) (test code = 432) BASOPHILS RELATIVE PERCENT 0 % (BEAKER) (test code = 437) NEUTROPHILS ABSOLUTE COUNT 6.75 K/ L 1.80-8.00 (BEAKER) (test code = 670) LYMPHOCYTES ABSOLUTE COUNT 3.44 K/ L 1.48-4.50 (BEAKER) (test code = 414) MONOCYTES ABSOLUTE COUNT (BEAKER) 0.71 K/ L 0.00-1.30 (test code = 415) EOSINOPHILS ABSOLUTE COUNT 0.25 K/ L 0.00-0.50 (BEAKER) (test code = 416) BASOPHILS ABSOLUTE COUNT (BEAKER) 0.05 K/ L 0.00-0.20 (test code = 417) IMMATURE GRANULOCYTES-RELATIVE 0 % 0-0 PERCENT (BEAKER) (test code = 2801) [id number] 20:53:001.270[facility]
--- NOTE | 2020-08-17 19:02 | RAD REPORT ---
EXAM DESCRIPTION: RAD - Hand Left 3 View - 08/17/2020 6:42 pm CLINICAL HISTORY: PAIN COMPARISON: No comparisons FINDINGS: Soft tissue swelling is seen along the dorsum of the hand. No acute fracture or dislocatio n seen.
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
[2020-08-17] MEDS ORDERED: HYDROCODONE/APAP 7.5/325 MG TAB ONE (19:58)
[2020-08-17 20:47] VITALS: BP 126/76; TEMP 97.8; O2SAT 100
== END 2020-08-17 19:54 | disposition home or self-care (01) ==
LOC: ER 17:22
DX: S00.90XA Unspecified superficial injury of unspecified part of head, initial encounter (principal); S60.222A Contusion of left hand, initial encounter; M54.2 Cervicalgia; M54.5 Low back pain; V43.52XA Car driver injured in collision with other type car in traffic accident, initial encounter; Z88.2 Allergy status to sulfonamides; F31.9 Bipolar disorder, unspecified; E78.5 Hyperlipidemia, unspecified; F17.210 Nicotine dependence, cigarettes, uncomplicated
CPT/HCPCS: 70450; 72125; 72131; 99284